=== PATIENT | female | born 1965 | race Caucasian/White ===

== ENCOUNTER 2018-07-26 19:58 | Emergency (ER) | payer OTHER, SELFPAY ==
[2018-07-26 20:00] VITALS: BP 148/86; PULSE 86; RESP 16; TEMP 36.7; O2SAT 100; BMI 19.3
--- NOTE | 2018-07-26 20:55 | RAD_ITS ---
STUDY: X-RAY - LEFT WRIST REASON FOR EXAM: Female, 53 years old. LEFT WRIST INJURY AT WORK, LATERAL PAIN TECHNIQUE: 3 view(s) of the wrist were obtained. COMPARISON: None. FINDINGS: Normal visualized distal radius and ulna. Normal radiocarpal articulation. Normal distal radioulnar articulation. Normal carpal bones. Normal carpal articulations. Normal carpometacarpal articulation of the thumb. Normal second through fifth carpometacarpal articulations. Normal visualized metacarpal bones. The soft tissue structures are unremarkable. RAD/Wrist min 3 Views IMPRESSION: Normal x-ray examination of the wrist. Electronically Signed: Jonatan Reed MD at 21:13 EDT , Service support ,
--- NOTE | 2018-07-26 21:23 | ED.DCSUM_ITS ---
- ER Visit Summary Date of Service: 07/26/18 Chief Complaint: [Injury to left wrist] History of Present Illness: The patient is a 53 F [presents the emergency department with complaint of injuring her left wrist earlier this evening around 7:20 PM patient states that she was at work when she got her fingers caught in a couple rack and twisted her wrist. States that she hurt a couple cracks and had severe pain. Patient is right-hand dominant.] Physical Examination: [HEENT-PERRLA, EOMI. Cranial nerves II through XII grossly intact. TMs clear. Mucous membranes moist. No adenopathy. Cardiovascular-regular rate and rhythm without murmur or ectopy Lungs-clear to auscultation, chest wall stable without crepitus or subcu emphysema Abdomen-normoactive bowel sounds, soft, nontender, no rebound or rigidity, no peritoneal signs. Extremities-intact ?4, normal range of motion, normal pulses, atraumatic]. Right wrist-no soft tissue swelling or obvious deformity noted. She has pain with range of motion in flexion extension of the wrist. She is tender mostly over the ulnar aspect of the wrist. Neurovascular intact distally. Test Results: [X-rays of left wrist obtained were normal] Emergency Department Course and Treatment: [Patient was given a wrist splint] Treatment Plan: Patient will be given work restrictions. Patient advised to use ibuprofen or Tylenol for discomfort.] Disposition: [Discharged home in stable condition. Patient to follow-up with [employer] and 3-5 days.] Impression: [Left wrist sprain.] This note was generated with [employer] dictation software. It may contain incorrect words, spelling, and punctuation that were not noted in review of the chart prior to signing ED Disposition - Plan for ED Patient: Chief Complaint: Upper Extremity Injury
--- NOTE | 2018-07-26 21:23 | ED.DEP ---
ED Disposition - Plan for ED Patient: Chief Complaint: Upper Extremity Injury Instructions: ED Sprain Wrist Referrals: NERISSA,NERISSA [GROUP OF PHYSICIANS] - 3-5 Days
[2018-07-26 21:50] VITALS: BP 134/85; PULSE 72; RESP 16
== END 2018-07-26 21:59 | disposition home or self-care (01) ==
LOC: ED 21:27
PROVIDERS: Emergency Provider Emergency Medicine; Family Provider Internal Medicine; PCP Internal Medicine
DX: S63.502A Unspecified sprain of left wrist, initial encounter (principal); W23.0XXA Caught, crushed, jammed, or pinched between moving objects, initial encounter; Y93.9 Activity, unspecified; Y92.89 Other specified places as the place of occurrence of the external cause; Y99.0 Civilian activity done for income or pay; I10 Essential (primary) hypertension; E03.9 Hypothyroidism, unspecified; Z72.0 Tobacco use; Z79.899 Other long term (current) drug therapy
CPT/HCPCS: 73110; 99283

== ENCOUNTER 2019-06-24 21:20 | Emergency (ER) | payer OTHER, SELFPAY ==
[2019-06-24 21:22] VITALS: BP 152/115; PULSE 76; RESP 16; TEMP 36.6; O2SAT 98; BMI 19.1
--- NOTE | 2019-06-24 21:54 | RAD_ITS ---
STUDY: X-RAY - LEFT HAND REASON FOR EXAM: Female, 54 years old. Left-sided hand pain after fall. TECHNIQUE: 3 view(s) of the hand. COMPARISON: None. FINDINGS: There is joint space narrowing of the radiocarpal articulation consistent with degenerative arthrosis. There is a negative ulnar variant of the distal radioulnar articulation. Normal visualized carpal bones. Normal carpal articulations Normal carpometacarpal articulation of the thumb. Normal second through fifth carpometacarpal joints. Normal metacarpi. There is degenerative arthrosis of the metacarpophalangeal (MCP) joints. Normal interphalangeal joint of the thumb. There is mild narrowing of all the IP joints probably related to mild degenerative arthropathy. The phalanges have essentially normal appearance and alignment. Normal metacarpophalangeal joints of the second through fifth fingers. The soft tissue structures are unremarkable. RAD/Hand Min 3 Views IMPRESSION: 1. No radiographic evidence for acute fracture. 2. Mild degenerative arthropathy. 3. If there is still clinical concern for acute fracture, follow-up radiographs in 7-10 days maybe helpful in evaluating a healing radiographically occult fracture. Electronically Signed: Arabella Rangel MD at 22:07 EDT , Service support ,
--- NOTE | 2019-06-24 23:10 | ED.VISSUMM ---
- ER Visit Summary Date of Service: 06/24/19 Chief Complaint: Fall History of Present Illness: The patient is a 54 F who presents after a fall that occurred today. Patient states she stepped on uneven sidewalk and twisted her left ankle. Patient states she landed on her left wrist and left elbow. Patient also complains of pain over the right posterior hip. Patient describes the pain as sharp, stabbing, and throbbing. Patient denies any paresthesias or weakness. Physical Examination: Vital signs are stable. Patient is afebrile. Patient is in no acute distress. Skin is warm and dry. There are abrasions over the palmar aspect of the left hand and extensor surface of the left elbow. There is no active bleeding noted. There is some mild tenderness over the base of the first metacarpal. There is no ecchymosis. There is no deformity noted. Range of motion was limited in opposition of the left thumb secondary to pain. There is good range of motion of the left elbow and left wrist. There is no obvious deformity. There is some mild tenderness over the posterior aspect of the right hip. There is good range of motion. There is no deformity. Test Results: X-rays of the left hand were obtained. There is no acute fracture. Emergency Department Course and Treatment: Bacitracin dressings were applied to the left hand and left elbow. Patient was given a tetanus booster. Patient was instructed to ice and elevate the left upper extremity. Patient was instructed to take Tylenol or ibuprofen as needed for pain. Patient understood and was agreeable with the plan. Patient was instructed to follow-up with her primary care physician in 5 to 7 days. All questions were answered. Disposition: Discharge home Impression: 1. Left hand abrasion 2. Left elbow abrasion 3. Multiple contusions This note was generated with [employer] dictation software. It may contain incorrect words, spelling, and punctuation that were not noted in review of the chart prior to signing ED Disposition - Plan for ED Patient: Disposition: Home or Assisted Living Diagnosis: Multiple abrasions, Multiple contusions Referrals: Teresa Aguilera MD [Primary Care Provider] - 5-7 Days
[2019-06-24] MEDS: Diphth,Pertuss(Acell),Tet Vac 0.5 ML Vial IM (23:47)
[2019-06-24] MEDS: BACITRACIN 15 GM Tube 1 APPLIC TOPICAL (23:48)
[2019-06-24 23:59] VITALS: BP 138/90; PULSE 84; RESP 17; O2SAT 95
--- NOTE | 2019-06-25 00:07 | ED.RN ---
observed on shot time for 15 min, no reaction noted by this nurse.
== END 2019-06-25 00:08 | disposition home or self-care (01) ==
PROVIDERS: Emergency Provider Emergency Medicine; Family Provider Internal Medicine; PCP Internal Medicine
DX: S60.512A Abrasion of left hand, initial encounter (principal); S50.312A Abrasion of left elbow, initial encounter; M25.551 Pain in right hip; W01.10XA Fall on same level from slipping, tripping and stumbling with subsequent striking against unspecified object, initial encounter; Y93.9 Activity, unspecified; Y92.9 Unspecified place or not applicable; Y99.9 Unspecified external cause status; Z23 Encounter for immunization; I10 Essential (primary) hypertension; E03.9 Hypothyroidism, unspecified; Z72.0 Tobacco use; Z79.899 Other long term (current) drug therapy
CPT/HCPCS: 73130; 90471; 90715; 99283

== ENCOUNTER → 2024-03-03 | Outpatient (CLI) | payer MEDICAID, SELFPAY | END | disposition home or self-care (01) | LOC: LABSPEC 15:08 | PROVIDERS: PCP Internal Medicine; Referring Provider Otolaryngology Otolaryngology/Facial Plastic Surgery; Visit Provider Otolaryngology Otolaryngology/Facial Plastic Surgery | DX: J32.8 Other chronic sinusitis (principal) | CPT/HCPCS: 87070; 87077; 87186; 87205 ==

== ENCOUNTER → 2024-03-28 | Outpatient (CLI) | payer MEDICAID, SELFPAY | END | disposition home or self-care (01) | PROVIDERS: PCP Internal Medicine; Referring Provider Otolaryngology Otolaryngology/Facial Plastic Surgery; Visit Provider Otolaryngology Otolaryngology/Facial Plastic Surgery | DX: J32.9 Chronic sinusitis, unspecified (principal) | CPT/HCPCS: 87070; 87077; 87186; 87205 ==

== ENCOUNTER 2025-05-17 16:25 | Emergency (ER) | payer MEDICAID, SELFPAY ==
[2025-05-17 16:25] VITALS: BP 123/84; PULSE 85; RESP 16; TEMP 36.4; O2SAT 99
--- NOTE | 2025-05-17 16:27 | RAD_ITS ---
PROCEDURE: FOOT 2 VIEWS 05/17/2025 REASON FOR EXAM: PAIN TECHNIQUE: FOOT 2 VIEWS COMPARISON: None RAD/Foot 2 Views IMPRESSION: No acute fracture or dislocations. No significant degenerative changes. Mild ankle effusion. Mild diffuse soft tissue edema. No radiographic foreign body. Reading Location: [id number]
--- NOTE | 2025-05-17 16:27 | RAD_ITS ---
PROCEDURE: ANKLE 2 VIEWS 05/17/2025 REASON FOR EXAM: PAIN TECHNIQUE: ANKLE 2 VIEWS COMPARISON: None RAD/Ankle 2 Views IMPRESSION: No acute fracture or dislocations. No significant degenerative changes. Mild ankle effusion. Mild diffuse soft tissue edema. No radiographic foreign body. Reading Location: [id number]
--- NOTE | 2025-05-17 16:27 | RAD_ITS ---
PROCEDURE: ANKLE 2 VIEWS 05/17/2025 REASON FOR EXAM: PAIN TECHNIQUE: ANKLE 2 VIEWS COMPARISON: None RAD/Ankle 2 Views IMPRESSION: No acute fracture or dislocations. No significant degenerative changes. Mild ankle effusion. Mild diffuse soft tissue edema. No radiographic foreign body. Reading Location: [id number]
--- NOTE | 2025-05-17 16:27 | RAD_ITS ---
PROCEDURE: FOOT 2 VIEWS 05/17/2025 REASON FOR EXAM: PAIN TECHNIQUE: FOOT 2 VIEWS COMPARISON: None RAD/Foot 2 Views IMPRESSION: No acute fracture or dislocations. No significant degenerative changes. Mild ankle effusion. Mild diffuse soft tissue edema. No radiographic foreign body. Reading Location: [id number]
--- NOTE | 2025-05-17 18:48 | EX.ED.DYSGE1 ---
HPI History of Present Illness Chief Complaint: Lower Extremity Injury [facility] Home Medications ?Medication ?Instructions ?Recorded ?Last Taken ?Type levothyroxine 88 mcg tablet 88 mcg PO DAILY 07/26/18 Unknown History lisinopril 10 mg tablet (Prinivil) 10 mg PO DAILY 07/26/18 Unknown History Allergy/AdvReac Type Severity Reaction Status Date / Time No Known Allergies Allergy Verified 05/17/25 16:27 Social History Smoking Status: Current every day smoker tobacco type: cigarettes EXAM Physical Exam Const Vital Signs: 05/17/25 16:25 Temperature 97.5 F L Temperature Source Oral Pulse Rate 85 Respiratory Rate 16 Blood Pressure 123/84 H Blood Pressure Mean 97 Pulse Ox 99 Oxygen Delivery Method Room Air MDM MDM MDM Narrative Medical decision making narrative: HISTORY OF PRESENT ILLNESS: Chief complaint: Ankle and foot pain 60-year-old female presents concern for ankle and foot pain. Notes she fell on the sidewalk this morning. No head trauma. No loss of conscious. Notes she rotated her ankle inwards. No since that she had severe left ankle pain. REVIEW OF SYSTEMS: Pertinent positives: Ankle/foot pain Pertinent negatives: Loss of consciousness PHYSICAL EXAM: Nursing triage notes reviewed, Vital signs reviewed Primary Survey Airway: Intact Breathing: Bilateral breath sounds Circulation: Palpable bilateral femorals, Palpable bilateral radial, Palpable bilateral DP and Palpable bilateral PT Disability / Spine precautions GCS Score: Eye Openin Verbal Response: 5 Motor Response: 6 Secondary Survey Constitutional: Please see MDM Head: Atraumatic, Midface stable, NO jaw malocclusion, No Cephalohematoma, and No Lacerations noted Eye: Pupils equal round and reactive to light, Extraocular muscles intact and No periorbital ecchymosis or stepoff, no evidence of entrapment ENT: Oropharynx clear, no lacerations, no hemotympanum, no raccoon eyes or guzmán sign Cervical spine / Neck: No cervical spine bony tenderness, crepitance, or stepoff deformity Trachea midline Lungs: Clear to auscultation, No asymmetric rise and No crepitus, no flail chest Cardiac: Regular rate and rhythm and No murmurs Abdomen: Soft, Nontender and No rebound Pelvis: Pelvis stable to compression : No evidence of genital injury Back: No midline bony tenderness to thoracic/lumbar/sacral spines Neuro: At baseline, intact strength and sensation in bilateral upper and lower extremities. 2+ patellar reflexes bilaterally. Intact sensation L1-S1 dermatomal distributions. Intact 5/5 strength in hip flexion (T12-L3). Knee extension (L2-L4). Ankle dorsiflexion (L4-L5). Ankle plantar flexion (S1). Great toe extension (L5). 2+ patellar and Achilles DTRs. Extremities: NO gross Deformities, TTP over left ankle. Left lower extremity neurovascular intact. Compartments are soft Psych: Normal affect Nursing triage notes reviewed, Vital signs reviewed MEDICAL DECISION MAKING: Chief Complaint: please see HPI External records reviewed: [Reviewed prior imaging Factors affecting care: none Social determinants of health: none History obtained from others: none Consults: none [facility] Narrative: The patient was initially hemodynamically stable, afebrile and nontoxic-appearing. Exam with left ankle TTP I considered the following differential diagnosis: Ankle/foot fracture X-rays were obtained in triage secondary to poor department of condition including high-volume high acuity. To further determine if the patient was suffering from a life-threatening etiology. ALL IMAGES (IF OBTAINED) HAVE BEEN PERSONALLY REVIEWED AND INTERPRETED BY MYSELF. X-rays of the left ankle and foot were read and reviewed personally myself showed no obvious fracture dislocation. Radiologist agreed my interpretation Aircast applied. Ibuprofen given for pain control The patient and/or family, caregivers express understanding. The patient and/or family, caregivers agrees with the plan. Shared decision making: I will have a discussion with the patient and or visitors regarding risk/benefits of further testing or admission. They will be made aware of of the risk/benefits inherent in this decision they will be given the opportunity to voice understanding. Total critical care time today provided was at least 0 minutes. This excludes separately billable procedures. Critical care time (if documented) is secondary to the patient having high probability of clinically significant/life threatening deterioration in the patient's condition which required my urgent intervention. Impression: 1. Left ankle contusion 2. Acute left foot contusion 3. Fall Dispo: Discharge home This note was generated with [employer] dictation software. It may contain incorrect words, spelling, and punctuation that were not noted in review of the chart prior to signing. Radiography Diagnostic Testing: Clinical Impression(s) from Imaging Studies Ankle X-Ray 05/17/25 16:27 IMPRESSION: No acute fracture or dislocations. No significant degenerative changes. Mild ankle effusion. Mild diffuse soft tissue edema. No radiographic foreign body. Reading Location: [facility] Foot X-Ray 05/17/25 16:27 IMPRESSION: No acute fracture or dislocations. No significant degenerative changes. Mild ankle effusion. Mild diffuse soft tissue edema. No radiographic foreign body. Reading Location: [facility] Discharge Plan Triage Chief Complaint: Lower Extremity Injury ED Provider: Fady Louis Dx/Rx/DC Orders Prescriptions: No Action levothyroxine 88 MCG tablet 88 mcg PO DAILY lisinopril [Prinivil] 10 MG tablet 10 mg PO DAILY Primary Care Provider: Teresa Aguilera Referrals: Teresa Aguilera MD [Primary Care Provider] - Print Language: Kinyarwanda
--- NOTE | 2025-05-17 18:48 | EX.ED.DYSGE1 ---
HPI History of Present Illness Chief Complaint: Lower Extremity Injury [facility] Home Medications ?Medication ?Instructions ?Recorded ?Last Taken ?Type levothyroxine 88 mcg tablet 88 mcg PO DAILY 07/26/18 Unknown History lisinopril 10 mg tablet (Prinivil) 10 mg PO DAILY 07/26/18 Unknown History Allergy/AdvReac Type Severity Reaction Status Date / Time No Known Allergies Allergy Verified 05/17/25 16:27 Social History Smoking Status: Current every day smoker tobacco type: cigarettes EXAM Physical Exam Const Vital Signs: 05/17/25 16:25 Temperature 97.5 F L Temperature Source Oral Pulse Rate 85 Respiratory Rate 16 Blood Pressure 123/84 H Blood Pressure Mean 97 Pulse Ox 99 Oxygen Delivery Method Room Air MDM MDM MDM Narrative Medical decision making narrative: HISTORY OF PRESENT ILLNESS: Chief complaint: Ankle and foot pain 60-year-old female presents concern for ankle and foot pain. Notes she fell on the sidewalk this morning. No head trauma. No loss of conscious. Notes she rotated her ankle inwards. No since that she had severe left ankle pain. REVIEW OF SYSTEMS: Pertinent positives: Ankle/foot pain Pertinent negatives: Loss of consciousness PHYSICAL EXAM: Nursing triage notes reviewed, Vital signs reviewed Primary Survey Airway: Intact Breathing: Bilateral breath sounds Circulation: Palpable bilateral femorals, Palpable bilateral radial, Palpable bilateral DP and Palpable bilateral PT Disability / Spine precautions GCS Score: Eye Openin Verbal Response: 5 Motor Response: 6 Secondary Survey Constitutional: Please see MDM Head: Atraumatic, Midface stable, NO jaw malocclusion, No Cephalohematoma, and No Lacerations noted Eye: Pupils equal round and reactive to light, Extraocular muscles intact and No periorbital ecchymosis or stepoff, no evidence of entrapment ENT: Oropharynx clear, no lacerations, no hemotympanum, no raccoon eyes or guzmán sign Cervical spine / Neck: No cervical spine bony tenderness, crepitance, or stepoff deformity Trachea midline Lungs: Clear to auscultation, No asymmetric rise and No crepitus, no flail chest Cardiac: Regular rate and rhythm and No murmurs Abdomen: Soft, Nontender and No rebound Pelvis: Pelvis stable to compression : No evidence of genital injury Back: No midline bony tenderness to thoracic/lumbar/sacral spines Neuro: At baseline, intact strength and sensation in bilateral upper and lower extremities. 2+ patellar reflexes bilaterally. Intact sensation L1-S1 dermatomal distributions. Intact 5/5 strength in hip flexion (T12-L3). Knee extension (L2-L4). Ankle dorsiflexion (L4-L5). Ankle plantar flexion (S1). Great toe extension (L5). 2+ patellar and Achilles DTRs. Extremities: NO gross Deformities, TTP over left ankle. Left lower extremity neurovascular intact. Compartments are soft Psych: Normal affect Nursing triage notes reviewed, Vital signs reviewed MEDICAL DECISION MAKING: Chief Complaint: please see HPI External records reviewed: [Reviewed prior imaging Factors affecting care: none Social determinants of health: none History obtained from others: none Consults: none [facility] Narrative: The patient was initially hemodynamically stable, afebrile and nontoxic-appearing. Exam with left ankle TTP I considered the following differential diagnosis: Ankle/foot fracture X-rays were obtained in triage secondary to poor department of condition including high-volume high acuity. To further determine if the patient was suffering from a life-threatening etiology. ALL IMAGES (IF OBTAINED) HAVE BEEN PERSONALLY REVIEWED AND INTERPRETED BY MYSELF. X-rays of the left ankle and foot were read and reviewed personally myself showed no obvious fracture dislocation. Radiologist agreed my interpretation Aircast applied. Ibuprofen given for pain control The patient and/or family, caregivers express understanding. The patient and/or family, caregivers agrees with the plan. Shared decision making: I will have a discussion with the patient and or visitors regarding risk/benefits of further testing or admission. They will be made aware of of the risk/benefits inherent in this decision they will be given the opportunity to voice understanding. Total critical care time today provided was at least 0 minutes. This excludes separately billable procedures. Critical care time (if documented) is secondary to the patient having high probability of clinically significant/life threatening deterioration in the patient's condition which required my urgent intervention. Impression: 1. Left ankle contusion 2. Acute left foot contusion 3. Fall Dispo: Discharge home This note was generated with [employer] dictation software. It may contain incorrect words, spelling, and punctuation that were not noted in review of the chart prior to signing. Radiography Diagnostic Testing: Clinical Impression(s) from Imaging Studies Ankle X-Ray 05/17/25 16:27 IMPRESSION: No acute fracture or dislocations. No significant degenerative changes. Mild ankle effusion. Mild diffuse soft tissue edema. No radiographic foreign body. Reading Location: [facility] Foot X-Ray 05/17/25 16:27 IMPRESSION: No acute fracture or dislocations. No significant degenerative changes. Mild ankle effusion. Mild diffuse soft tissue edema. No radiographic foreign body. Reading Location: [facility] Discharge Plan Triage Chief Complaint: Lower Extremity Injury ED Provider: Fady Louis Dx/Rx/DC Orders Prescriptions: No Action levothyroxine 88 MCG tablet 88 mcg PO DAILY lisinopril [Prinivil] 10 MG tablet 10 mg PO DAILY Primary Care Provider: Teresa Aguilera Referrals: Teresa Aguilera MD [Primary Care Provider] - Print Language: Portuguese
[2025-05-17 19:25] VITALS: BP 138/74; PULSE 71; RESP 16; TEMP 36.8; O2SAT 99
== END 2025-05-17 19:32 | disposition home or self-care (01) ==
PROVIDERS: Emergency Provider Emergency Medicine; PCP Internal Medicine; Referring Provider Emergency Medicine; Visit Provider Emergency Medicine
DX: S90.02XA Contusion of left ankle, initial encounter (principal); S90.32XA Contusion of left foot, initial encounter; W18.30XA Fall on same level, unspecified, initial encounter; F17.210 Nicotine dependence, cigarettes, uncomplicated
CPT/HCPCS: 73600; 73620; 99283